=== PATIENT | male | born 1955 | race Caucasian/White ===

== ENCOUNTER 2016-09-27 21:10 | Emergency (ER) | payer OTHER ==
[2016-09-27] MEDS ORDERED: CLOPIDOGREL BISULFATE 75 MG TABLET PO ONE (21:31)
[2016-09-27 21:47] LABS: BASOPHIL# 0.5 X 10^3uL (0.0-0.1); BASOPHILS 3.4 % (0.0-2.0); EOSINOPHILS 2.7 % (0.0-6.0); EOSINOPHILS# 0.4 X 10^3uL (0.0-0.4); HEMATOCRIT 48.3 % (42.0-54.0); HEMOGLOBIN 16.6 g/dL (14.0-18.0); LYMPHOCYTES 41.5 % (20.0-40.0); LYMPHOCYTES# 6.5 X 10^3uL (0.8-3.8); MEAN CELL VOLUME 91.9 fL (80.0-100.0); MEAN CORPUS. HGB CONCENTRATION 34.5 g/dL (32.0-36.0); MEAN CORPUSCULAR HEMOGLOBIN 31.7 pg (29.0-35.0); MEAN PLATELET VOLUME 9.9 fL (7.4-10.4); MONOCYTES 11.3 % (2.0-10.0); MONOCYTES# 1.7 X 10^3uL (0.2-1.0); NEUTROPHILS 41.1 % (54.0-75.0); NEUTROPHILS# 6.3 X 10^3uL (2.6-6.7); PLATELET COUNT 304 X 10^3uL (130-440); RED BLOOD COUNT 5.26 X 10^6uL (4.20-6.10); RED CELL DISTRIBUTION WIDTH 13.6 % (11.5-14.5); WHITE BLOOD COUNT 15.4 X 10^3uL (3.9-10.7)
[2016-09-27] MEDS ORDERED: NITROGLYCERIN 0.4 MG TAB.SUBL SUBLINGUAL ONE (21:47)
[2016-09-27] MEDS ORDERED: HEPARIN SOD PORCINE 5,000 UNITS/ML VIAL ONE (21:47)
[2016-09-27 21:51] LABS: BLOOD UREA NITROGEN 20 mg/dL (9-20); CALCIUM 9.1 mg/dL (8.4-10.2); CHLORIDE 104 mmol/L (98-107); CREATININE 1.3 mg/dL (0.7-1.3); EST GLOMERULAR FILTRATION RATE 59 mL/min; GLUCOSE 112 mg/dL (70-100); MAGNESIUM 2.2 mg/dL (1.6-2.3); POTASSIUM 2.8 mmol/L (3.5-5.1); SODIUM 140 mmol/L (137-145)
[2016-09-27 22:03] LABS: TROPONIN I < 0.012 ng/mL (0.00-0.034)
--- NOTE | 2016-09-27 22:06 | RADIOLOGY REPORT ---
AP UPRIGHT PORTABLE CHEST RADIOGRAPH CLINICAL INFORMATION: Chest pain. COMPARISON: None. FINDINGS: Lungs are adequately inflated. There is no consolidation, pneumothorax, or displaced fractu re. Costophrenic angles are clear. Cardiomediastinal silhouette is prominent, possibly magnified by A P portable technique. IMPRESSION: No acute cardiopulmonary abnormalities. Final Electronic Signature: This report was electronically signed by Perdo Dorsey MD on 7 10:03 PM. gino /
[2016-09-27] MEDS ORDERED: POTASSIUM EFF 25 MEQ TABLET ONE (22:09)
--- NOTE | 2016-09-27 22:40 | ER PHYSICIAN DOCUMENTATION ---
Physician Documentation [facility] Name:Ramírez Vázquez Age:60 yrs Sex:Male :1955 Arrival Date:09/27/2016 Time:21:10 BedTrauma C Private MD:Rocky Agrawal ED, [place] Disposition: 09/27 21:40 Critical Care:. sc Disposition: 09/27/16 21:45 Transfer ordered to [facility] [place]. Diagnosis is Chest Pain. - Reason for transfer: Specialty. - Accepting physician is Dr. Guy. - Condition is Serious. - Problem is new. - Symptoms have improved. COBRA Form completed? Yes Transfer - Mode of Transportation Ambulance HPI: 21:35 This 60 yrs old Male presents to ER via Walk In with complaints of Chest Pain.sc 21:35 The patient or guardian reports chest pain that is located primarily in the substernal sc area. Onset: at 20:55. The pain radiates to the left arm. There has been no movement of pain. Associated signs and symptoms: Pertinent positives: nausea, shortness of breath. The chest pain is described as a heaviness. Duration: The patient or guardian reports a single episode, that is still ongoing. Modifying factors: The symptoms are alleviated by nothing. The patient has not experienced similar symptoms in the past. brother with NV at age 40, father with NV in 60's. Historical: - Allergies: No known drug Allergies; - PMHx: Hypertension; - Tetanus: < 10 years. - Ebola Screening: : Patient denies exposure to infectious person. Patient denies travel to an Ebola-affected area in the 21 days before illness onset. . - Immunization history: Unable to Obtain. - Social history: Smoking status: Patient states was never smoker of tobacco. Patient uses alcohol only on a social basis. - Code Status:: Full code. ROS: 21:37 Constitutional: Negative for fever, chills, and weight loss. sc Eyes: Negative for injury, pain, redness, and discharge. ENT: Negative for injury, pain, and discharge. Neck: Negative for injury, pain, and swelling. Abdomen/GI: Negative for abdominal pain, nausea, vomiting, diarrhea, and constipation. Back: Negative for injury and pain. MS/Extremity: Negative for injury and deformity. 21:37 Neuro: Negative for headache, weakness, numbness, tingling, and seizure. sc 21:37 Cardiovascular: Positive for chest pain. 21:37 Respiratory: Positive for shortness of breath. 21:37 Skin: Positive for diaphoresis. Exam: Constitutional: This is a well developed, well nourished patient who is awake, alert, and in no acute distress. Head/Face: Normocephalic, atraumatic. Eyes: Pupils equal round and reactive to light, extra-ocular motions intact. Lids and lashes normal. Conjunctiva and sclera are non-icteric and not injected. Cornea within normal limits. Periorbital areas with no swelling, redness, or edema. ENT: Nares patent. No nasal discharge, no septal abnormalities noted. Tympanic membranes are normal and external auditory canals are clear. Oropharynx with no redness, swelling, or masses, exudates, or evidence of obstruction, uvula midline. Mucous membranes moist. Neck: Trachea midline, no thyromegaly or masses palpated, and no cervical lymphadenopathy. Supple, full range of motion without nuchal rigidity, or vertebral point tenderness. No meningismus. Chest/axilla: Normal chest wall appearance and motion. Nontender with no deformity. No lesions are appreciated. Cardiovascular: Regular rate and rhythm with a normal S1 and S2. No gallops, murmurs, or rubs. Normal PMI, no JVD. No pulse deficits. Respiratory: Lungs have equal breath sounds bilaterally, clear to auscultation and percussion. No rales, rhonchi or wheezes noted. No increased work of breathing, no retractions or nasal flaring. Abdomen/GI: Soft, non-tender, with normal bowel sounds. No distension or tympany. No guarding or rebound. No evidence of tenderness throughout. Back: No spinal tenderness. No costovertebral tenderness. Full range of motion. MS/ Extremity: Pulses equal, no cyanosis. Neurovascular intact. Full, normal range of motion, negative Homans's, calves equal bilaterally. 21:38 Neuro: Awake and alert, GCS 15, oriented to person, place, time, and situation. sc Cranial nerves II-XII grossly intact. Motor strength 5/5 in all extremities. Sensory grossly intact. Cerebellar exam normal. Normal gait. 21:38 Skin: Appearance: Color: normal in color, pink, Temperature: warm, diaphoresis is noted. 21:47 Cardiovascular: Rate: normal, Rhythm: regular. ks Vital Signs: 21:27 BP 142 / 80; Pulse 67; Resp 18; Pulse Ox 97% on R/A; Weight 90.72 kg; Pain 6/10; lb 21:54 BP 114 / 61; Pulse 59; Resp 20; Temp 98.1(TE); Pulse Ox 95% on 2 lpm NC; Pain 4/10; sj 22:02 BP 137 / 73; Pulse 70; Resp 20; Pulse Ox 97% on 2 lpm NC; Pain 4/10; sj MDM: 21:26 Patient medically screened. ks 21:39 Patient took aspirin in the Emergency Department. Data reviewed: vital signs, nurses sc notes, lab test result(s), EKG, radiologic studies, and as a result, I will *Transfer Patient. Data interpreted: weeder:. 21:45 Patient did not receive fibrinolytic due to per interventional cardiology, no lytics. ks ECG:. 21:46 Physician consultation: Paresh Landeros MD was called at 21:47, was contacted at 21:47, ks regarding patient's condition, would like medications started, heparin, no lytics but plavix, asa, ntg, heparin. 09/27 21:50 Order name: CBC AUTO DIF, MDIF/RMOR IF IND [facility] 09/27 21:56 Interpretation: Normal Except: WHITE BLOOD COUNT 15.4. ks 03 21:55 Order name: PROTIME/INR [facility] 09/27 21:56 Interpretation: Normal. ks 03 21:55 Order name: BASIC METABOLIC PANEL [facility] 09/27 21:56 Interpretation: Abnormal: POTASSIUM 2.8. ks 03 21:55 Order name: MAGNESIUM [facility] 09/27 21:56 Interpretation: Normal. ks 09/27 22:04 Order name: TROPONIN I [facility] 09/27 22:07 Order name: CHEST; SINGLE VIEW [id number] [facility] 09/27 21:32 Order name: CALL HELICOPTER; Complete Time: 21:33 lb 09/27 21:32 Order name: Continuous Cardiac Monitoring; Complete Time: 21:33 lb 09/27 21:32 Order name: EKG - 12 Lead; Complete Time: 21:33 lb 09/27 21:32 Order name: EKG - fax to [phone]; Complete Time: 22:07 lb 09/27 21:32 Order name: IV saline lock X2; Complete Time: :33 lb 09/27 21:32 Order name: Oxygen; Complete Time: : lb 09/27 21:32 Order name: Pulse Ox Continuous; Complete Time: :33 lb EC:45 Rate is 61 beats/min. Rhythm is regular. QRS [place] is Normal. AR interval is normal. QRS sc interval is normal. QT interval is normal. No Q waves. T waves are Inverted in leads III, aVF. ST Segment is depressed in leads III, aVF, <1mm. Clinical impression: Acute NV. Interpreted by me. Reviewed by me. Dispensed Medications: : Drug: Aspirin 162 mg; Route: PO; lb 21:54 Follow up: Response: No adverse reaction lb 21:28 Drug: Plavix 300 mg; Route: PO; lb 21:54 Follow up: Response: No adverse reaction lb 21:39 Drug: heparin 60 units/kg; Route: IVP; Site: right forearm; lb 21:55 Follow up: Response: No adverse reaction lb 21:39 Drug: Nitroglycerin 0.4 mg; Route: Sublingual; lb 21:55 Follow up: Response: Pain is decreased lb 21:57 Drug: Lopressor 5 mg; Route: IVP; Site: left forearm; sj 22:10 Follow up: Response: Blood pressure is lowered lb 22:00 Drug: K-Lyte Effervescent Tablet 50 mEq; Route: PO; sj 22:10 Follow up: Response: No adverse reaction Critical care time excluding procedures: 21:40 Critical care time: Bedside Care: 30 minutes, Consultation: 30 minutes. Total time: 60 sc minutes Signatures: Taye Velez MD MD ks Gaby Argueta Lynda lb
--- NOTE | 2016-09-27 22:40 | ER NURSING DOCUMENTATION ---
Nurse's Notes [facility] Name:Ramírez Vázquez Age:60 yrs Sex:Male :1955 Arrival Date:09/27/2016 Time:21:10 BedTrauma C Private MD:Rocky Agrawal Diagnosis:Chest Pain Presentation: 09/27 21:23 Presenting complaint: Patient states: chest pain/ pressure for 5 minutes prior to lb arrival with left arm numbness rated 6/10. Transition of care: Home. AIR CAT ACTIVATION yes. Asprin Given Given in ED 162 mg po. Notified ED Physician of Dr. Velez notified. 21:23 Acuity: ALMAS 1 lb 21:23 Method Of Arrival: Walk In lb 21:47 Risk considerations: sudden onset of chest pain. sj Triage Assessment: 21:26 General: Appears distressed, Behavior is appropriate for age, cooperative. Pain: lb Complains of pain in mid-sternal area Pain does not radiate. Cardiovascular: Capillary refill < 3 seconds Pulses are all present. Reports chest pain. Respiratory: No deficits noted. Airway is patent Trachea midline Respiratory effort is even, unlabored, Breath sounds are clear bilaterally. Historical: - Allergies: No known drug Allergies; - PMHx: Hypertension; - Tetanus: < 10 years. - Ebola Screening: : Patient denies exposure to infectious person. Patient denies travel to an Ebola-affected area in the 21 days before illness onset. . - Immunization history: Unable to Obtain. - Social history: Smoking status: Patient states was never smoker of tobacco. Patient uses alcohol only on a social basis. - Code Status:: Full code. Screenin:29 Infectious Disease Risk None. Abuse screen: Denies threats or abuse. Denies injuries lb from another. Nutritional screening: No deficits noted. Assessment: 21:28 See Triage Assessment done by same RN. Pain: Pain began 30 min ago Is continuous lb Alleviated by nothing. 21:40 Reassessment: Patient states symptoms have improved. Nitro 0.4 mg SL for CP of 6. sj 21:45 Reassessment: 2nd nitro 0.4 mg SL for CP of 4. sj 21:48 Reassessment: 3rd nitro 0.4 mg SL for continued CP of 4. sj 21:49 Pain: Complains of pain in mid-sternal area Pain does not radiate. Pain currently is 6 sj out of 10 on a pain scale. Quality of pain is described as dull, pressure, Also complains of diaphoresis, shortness of breath, Current management is with aspirin 160 mg and 2 TUMS. Vital Signs: 21:27 BP 142 / 80; Pulse 67; Resp 18; Pulse Ox 97% on R/A; Weight 90.72 kg; Pain 6/10; lb 21:54 BP 114 / 61; Pulse 59; Resp 20; Temp 98.1(TE); Pulse Ox 95% on 2 lpm NC; Pain 4/10; sj 22:02 BP 137 / 73; Pulse 70; Resp 20; Pulse Ox 97% on 2 lpm NC; Pain 4/10; sj ED Course: 21:11 Patient arrived in ED. ma1 21:11 Rocky Agrawal is Private Physician. ma1 21:23 Shruthi Coburn is Primary Nurse. lb 21:25 Triage completed. lb 21:26 Taye Velez MD is Attending Physician. sc 21:[address] Velez notified. lb 21:29 Valuables Remains with patient. semi conductor assembler on. Pulse ox on. NIBP on. lb 21:29 Oxygen Oxygen administration via nasal cannula @ 2L/min. lb 21:50 Inserted peripheral IV: 20 gauge in right forearm and blood collected. sj 21:50 Labs drawn. (by ED staff). EKG done. (by ED staff). Reviewed by Taye Velez MD Portable sj x-ray done. Inserted peripheral IV: 18 gauge in left Wrist. 21:52 air transport declined by [facility] due to weather. sj Administered Medications: 21:28 Drug: Aspirin 162 mg; Route: PO; lb 21:54 Follow up: Response: No adverse reaction lb 21:28 Drug: Plavix 300 mg; Route: PO; lb 21:54 Follow up: Response: No adverse reaction lb 21:39 Drug: heparin 60 units/kg; Route: IVP; Site: right forearm; lb 21:55 Follow up: Response: No adverse reaction lb 21:39 Drug: Nitroglycerin 0.4 mg; Route: Sublingual; lb 21:55 Follow up: Response: Pain is decreased lb 21:57 Drug: Lopressor 5 mg; Route: IVP; Site: left forearm; sj 22:10 Follow up: Response: Blood pressure is lowered lb 22:00 Drug: K-Lyte Effervescent Tablet 50 mEq; Route: PO; sj 22:10 Follow up: Response: No adverse reaction lb Outcome: 21:45 ER care complete, transfer ordered by MD. damon 22:23 Transferred: Patient will be transferred to: [facility]. Facility lb Acceptance Time: September 27, 2016 at 21:30 22:38 Transferred: Patient's face sheet was faxed to accepting facility. Face Sheet included lb patient's name, address, age, gender, contact information and insurance information. Patient will be transported by: [facility] [place]. Report called to: Dalila ALEJANDRA Nurse and Physician Charting and Notes were sent to Accepting Facility. All tests and/or procedures with results, if applicable, were sent to accepting facility. 22:38 Condition: unchanged 22:38 Instructed on need for transfer 22:39 Patient left the ED. lb Signatures: Taye Velez MD MD sc Janzen, Shruthi Lama Melissa ma1
== END 2016-09-27 22:40 | disposition short-term general hospital (02) ==
LOC: ER 21:10
DX: I21.3 ST elevation (STEMI) myocardial infarction of unspecified site (principal); R06.02 Shortness of breath; R61 Generalized hyperhidrosis; Z82.49 Family history of ischemic heart disease and other diseases of the circulatory system; I10 Essential (primary) hypertension
CPT/HCPCS: 71010; 80048; 83735; 84484; 85025; 85610; 93005; 96374; 96375; 99285; A0425; A0427; J1644